=== PATIENT | female | born 1960 | race Caucasian/White ===

== ENCOUNTER 2017-09-14 09:13 | Day surgery (SDC) | payer OTHER ==
[2017-09-14] MEDS ORDERED: MIDAZOLAM 1 MG/ML 2 ML INJ ×2 (12:14→12:15)
[2017-09-14] MEDS ORDERED: FENTAnyl 50 MCG/ML VIAL (12:15)
== END 2017-09-14 14:12 | disposition home or self-care (01) ==
LOC: GIL 09:13
DX: K92.1 Melena (principal); K63.5 Polyp of colon; K64.8 Other hemorrhoids; I10 Essential (primary) hypertension
CPT/HCPCS: 45380; 88305

== ENCOUNTER 2017-11-12 09:30 | Inpatient (IN) | payer OTHER ==
[~2017-11-12 09:30] MED LIST: GLYCOPYRROLATE 0.4 MG INJ; NEOSTIGMINE 3 MG/3 ML SYRINGE
[2017-11-12] MEDS: metroNIDAZOLE 500 MG/NS (PMX) 100 ML IVPB (10:00)
[2017-11-12] MEDS ORDERED: SOD CHLORIDE 0.9% 1,000 ML IV (10:00)
[2017-11-12] MEDS: AMPICILLIN/SULB 3 GM/NS (PMX) 100 ML IVPB ×3 (10:00→22:22)
[2017-11-12] MEDS ORDERED: morphine SULFATE/PF (10 MG/10 ML) INJ (11:53)
[2017-11-12] MEDS ORDERED: MIDAZOLAM 1 MG/ML 2 ML INJ (11:53)
[2017-11-12] MEDS ORDERED: PHENYLephrine (100 MCG/ML) 5ML SYG ×2 (12:25→13:10)
[2017-11-12] MEDS ORDERED: METHYLENE BLUE 1% 10 ML INJ (12:57)
[2017-11-12] MEDS ORDERED: PROPOFOL 20 ML (14:33)
[2017-11-12] MEDS ORDERED: LIDOCAINE 2% (SDV) 5 ML INJ (14:33)
[2017-11-12] MEDS ORDERED: CEFAZOLIN 1 GM INJ (14:38)
[2017-11-12] MEDS ORDERED: metroNIDAZOLE 500 MG/NS (PMX) 100 ML IVPB (14:38)
[2017-11-12] MEDS: SOD CHLORIDE 0.9% 1,000 ML IV (14:39)
[2017-11-12] MEDS: BUPIVACAINE 0.25% (MPF) 30 ML INJ (14:55)
[2017-11-12] MEDS ORDERED: morphine 2 MG INJ IV (15:00)
[2017-11-12] MEDS ORDERED: NALOXONE (0.4 MG/ML) INJ IV (15:00)
[2017-11-12] MEDS ORDERED: MEPERIDINE 25 MG INJ IV (15:00)
[2017-11-12] MEDS ORDERED: DIPHENHYDRAMINE 50 MG INJ IV (15:00)
[2017-11-12] MEDS ORDERED: ONDANSETRON 4 MG INJ IV (15:00)
[2017-11-12] MEDS ORDERED: FENTAnyl 50 MCG/ML VIAL IV (15:00)
[2017-11-12] MEDS ORDERED: HYDROmorphONE (0.2 MG/ML) 10ML SYG IV (15:00)
[2017-11-12 15:13] LABS: ADD MAN DIFF? NO
[2017-11-12 15:19] LABS: BASOPHILS % 0.2 % (0.0-2.0); EOSINOPHILS # 0.1 10^3/ul (0.0-0.5); EOSINOPHILS % 0.5 % (0.0-7.0); HEMATOCRIT 38.3 % (37.0-47.0); HEMOGLOBIN 12.9 g/dl (12.0-16.0); LYMPHOCYTES % 15.6 % (15.0-51.0); MEAN CORPUSCULAR HEMOGLOBIN 30.4 pg (29.0-33.0); MEAN CORPUSCULAR HGB CONC 33.7 g/dl (32.0-37.0); MEAN CORPUSCULAR VOLUME 90.1 fl (82.0-101.0); MEAN PLATELET VOLUME 9.2 fl (7.4-10.4); MONOCYTE # 0.5 10^3/ul (0.3-0.9); MONOCYTES % 4.1 % (0.0-11.0); NEUTROPHIL # 10.1 10^3/ul (1.6-7.5); NEUTROPHILS % 79.1 % (39.0-77.0); PLATELET COUNT 266 10^3/UL (140-415); RED BLOOD COUNT 4.25 10^6/ul (4.20-5.40); RED CELL DISTRIBUTION WIDTH 11.8 % (11.5-14.5)
[2017-11-12 15:19] LABS: WHITE BLOOD COUNT 12.7 10^3/ul (4.8-10.8)
[2017-11-12 15:37] LABS: ALANINE AMINOTRANSFERASE 42 IU/L (13-69); ALBUMIN 3.4 g/dl (3.3-4.9); ALBUMIN/GLOBULIN RATIO 1.06; ALKALINE PHOSPHATASE 74 IU/L (42-121); ANION GAP 14 (8-16); ASPARTATE AMINO TRANSFERASE 33 IU/L (15-46); BILIRUBIN,INDIRECT 0.4 mg/dl (0-1.1); BILIRUBIN,TOTAL 0.4 mg/dl (0.2-1.3); CARBON DIOXIDE 26 mmol/L (21-31); CHLORIDE 108 mmol/L (97-110); GLUCOSE 134 mg/dl (70-220); TOTAL PROTEIN 6.6 g/dl (6.1-8.1)
[2017-11-12 15:56] LABS: BLOOD UREA NITROGEN 9 mg/dl (7-20); CALCIUM 9.1 mg/dl (8.4-10.2); CREATININE 0.61 mg/dl (0.44-1.00); SODIUM 144 mmol/L (135-144)
[2017-11-12] MEDS: HYDROmorphONE (0.2 MG/ML) 10ML SYG IV (16:01)
[2017-11-12] MEDS: METOCLOPRAMIDE 10 MG INJ IV (16:01)
[2017-11-12] MEDS ORDERED: hydrALAzine 20 MG INJ IV (16:30)
[2017-11-13] MEDS: SOD CHLORIDE 0.9% 1,000 ML IV ×5 (00:39→20:39)
[2017-11-13] MEDS: AMPICILLIN/SULB 3 GM/NS (PMX) 100 ML IVPB ×2 (04:29→08:17)
[2017-11-13 07:17] LABS: ADD MAN DIFF? NO
[2017-11-13 07:23] LABS: BASOPHILS % 0.3 % (0.0-2.0); EOSINOPHILS % 0.3 % (0.0-7.0); HEMATOCRIT 36.2 % (37.0-47.0); LYMPHOCYTES # 1.4 10^3/ul (0.8-2.9); LYMPHOCYTES % 11.7 % (15.0-51.0); MEAN CORPUSCULAR HEMOGLOBIN 30.5 pg (29.0-33.0); MEAN CORPUSCULAR HGB CONC 33.1 g/dl (32.0-37.0); MEAN CORPUSCULAR VOLUME 91.9 fl (82.0-101.0); MEAN PLATELET VOLUME 9.5 fl (7.4-10.4); MONOCYTE # 0.8 10^3/ul (0.3-0.9); MONOCYTES % 6.9 % (0.0-11.0); NEUTROPHIL # 9.4 10^3/ul (1.6-7.5); NEUTROPHILS % 80.4 % (39.0-77.0); PLATELET COUNT 247 10^3/UL (140-415); RED BLOOD COUNT 3.94 10^6/ul (4.20-5.40)
[2017-11-13 07:23] LABS: WHITE BLOOD COUNT 11.7 10^3/ul (4.8-10.8)
[2017-11-13 07:46] LABS: ALANINE AMINOTRANSFERASE 37 IU/L (13-69); ALBUMIN 3.3 g/dl (3.3-4.9); ALKALINE PHOSPHATASE 62 IU/L (42-121); ANION GAP 11 (8-16); ASPARTATE AMINO TRANSFERASE 25 IU/L (15-46); BILIRUBIN,INDIRECT 0.8 mg/dl (0-1.1); BILIRUBIN,TOTAL 0.8 mg/dl (0.2-1.3); BLOOD UREA NITROGEN 10 mg/dl (7-20); CALCIUM 8.9 mg/dl (8.4-10.2); CARBON DIOXIDE 30 mmol/L (21-31); CHLORIDE 108 mmol/L (97-110); CREATININE 0.69 mg/dl (0.44-1.00); GLUCOSE 121 mg/dl (70-220); POTASSIUM 4.3 mmol/L (3.5-5.1); SODIUM 145 mmol/L (135-144); TOTAL PROTEIN 6.3 g/dl (6.1-8.1)
[2017-11-13] MEDS: morphine 2 MG INJ IV (12:41)
[2017-11-13] MEDS: HYDROCODONE/APAP (5/325) TAB PO (17:39)
[2017-11-13] MEDS: PIPER-TAZO 3.375 GM IV (PMX) 100 ML IVPB (20:23)
[2017-11-13] MEDS: ACETAMINOPHEN 325 MG TAB PO (20:24)
[2017-11-14] MEDS: PIPER-TAZO 3.375 GM IV (PMX) 100 ML IVPB ×5 (01:32→23:30)
[2017-11-14] MEDS: SOD CHLORIDE 0.9% 1,000 ML IV ×3 (01:35→14:26)
[2017-11-14] MEDS: HYDROCODONE/APAP (5/325) TAB PO ×4 (01:36→21:52)
[2017-11-14 07:11] LABS: ADD MAN DIFF? NO
[2017-11-14 07:14] LABS: BASOPHILS % 0.2 % (0.0-2.0); EOSINOPHILS # 0.1 10^3/ul (0.0-0.5); EOSINOPHILS % 0.6 % (0.0-7.0); HEMOGLOBIN 11.9 g/dl (12.0-16.0); LYMPHOCYTES # 1.6 10^3/ul (0.8-2.9); LYMPHOCYTES % 12.7 % (15.0-51.0); MEAN CORPUSCULAR HEMOGLOBIN 30.5 pg (29.0-33.0); MEAN CORPUSCULAR HGB CONC 33.1 g/dl (32.0-37.0); MEAN CORPUSCULAR VOLUME 92.3 fl (82.0-101.0); MEAN PLATELET VOLUME 9.3 fl (7.4-10.4); MONOCYTE # 0.8 10^3/ul (0.3-0.9); MONOCYTES % 6.4 % (0.0-11.0); NEUTROPHIL # 9.9 10^3/ul (1.6-7.5); NEUTROPHILS % 79.6 % (39.0-77.0); PLATELET COUNT 228 10^3/UL (140-415); RED CELL DISTRIBUTION WIDTH 11.9 % (11.5-14.5)
[2017-11-14 07:14] LABS: WHITE BLOOD COUNT 12.4 10^3/ul (4.8-10.8)
[2017-11-14 07:43] LABS: ANION GAP 12 (8-16); BLOOD UREA NITROGEN 7 mg/dl (7-20); CALCIUM 8.9 mg/dl (8.4-10.2); CARBON DIOXIDE 28 mmol/L (21-31); CHLORIDE 108 mmol/L (97-110); CREATININE 0.62 mg/dl (0.44-1.00); GLUCOSE 104 mg/dl (70-220); POTASSIUM 3.7 mmol/L (3.5-5.1); SODIUM 144 mmol/L (135-144)
[2017-11-14] MEDS: morphine 2 MG INJ IV (12:05)
[2017-11-14] MEDS ORDERED: morphine LIQ (10 MG/5 ML) CUP PO (15:00)
[2017-11-14] MEDS ORDERED: ONDANSETRON 4 MG INJ IV (15:30)
[2017-11-15] MEDS: HYDROCODONE/APAP (5/325) TAB PO (02:32)
[2017-11-15] MEDS: SOD CHLORIDE 0.9% 1,000 ML IV ×2 (02:39→04:00)
[2017-11-15] MEDS: morphine LIQ (10 MG/5 ML) CUP PO ×2 (04:29→19:44)
[2017-11-15] MEDS: PIPER-TAZO 3.375 GM IV (PMX) 100 ML IVPB ×3 (05:17→18:34)
[2017-11-15 06:27] LABS: ADD MAN DIFF? NO
[2017-11-15 06:40] LABS: WHITE BLOOD COUNT 11.5 10^3/ul (4.8-10.8)
[2017-11-15 06:40] LABS: BASOPHILS % 0.3 % (0.0-2.0); EOSINOPHILS # 0.2 10^3/ul (0.0-0.5); EOSINOPHILS % 1.7 % (0.0-7.0); HEMATOCRIT 35.9 % (37.0-47.0); HEMOGLOBIN 12.1 g/dl (12.0-16.0); LYMPHOCYTES # 1.5 10^3/ul (0.8-2.9); LYMPHOCYTES % 13.4 % (15.0-51.0); MEAN CORPUSCULAR HEMOGLOBIN 30.5 pg (29.0-33.0); MEAN CORPUSCULAR HGB CONC 33.7 g/dl (32.0-37.0); MEAN CORPUSCULAR VOLUME 90.4 fl (82.0-101.0); MEAN PLATELET VOLUME 9.3 fl (7.4-10.4); MONOCYTE # 0.6 10^3/ul (0.3-0.9); NEUTROPHIL # 9.1 10^3/ul (1.6-7.5); NEUTROPHILS % 78.9 % (39.0-77.0); PLATELET COUNT 275 10^3/UL (140-415); RED BLOOD COUNT 3.97 10^6/ul (4.20-5.40); RED CELL DISTRIBUTION WIDTH 11.5 % (11.5-14.5)
[2017-11-15 07:04] LABS: ANION GAP 9 (8-16); BLOOD UREA NITROGEN 7 mg/dl (7-20); CALCIUM 8.4 mg/dl (8.4-10.2); CARBON DIOXIDE 27 mmol/L (21-31); CHLORIDE 107 mmol/L (97-110); CREATININE 0.59 mg/dl (0.44-1.00); GLUCOSE 117 mg/dl (70-220); POTASSIUM 3.3 mmol/L (3.5-5.1); SODIUM 140 mmol/L (135-144)
[2017-11-15] MEDS: SOD CHLORIDE 0.9% 500 ML IV ×2 (12:00→17:00)
[2017-11-15] MEDS: POTASSIUM CHLORIDE (SR) 20 MEQ TAB PO (15:41)
[2017-11-16] MEDS: PIPER-TAZO 3.375 GM IV (PMX) 100 ML IVPB ×3 (00:20→12:32)
[2017-11-16] MEDS: SOD CHLORIDE 0.9% 500 ML IV ×7 (00:20→23:00)
[2017-11-17] MEDS: SOD CHLORIDE 0.9% 500 ML IV ×4 (02:00→14:00)
[2017-11-17 06:24] LABS: ADD MAN DIFF? NO
[2017-11-17 06:31] LABS: WHITE BLOOD COUNT 7.7 10^3/ul (4.8-10.8)
[2017-11-17 06:31] LABS: BASOPHILS % 0.4 % (0.0-2.0); EOSINOPHILS # 0.3 10^3/ul (0.0-0.5); EOSINOPHILS % 3.5 % (0.0-7.0); HEMATOCRIT 34.1 % (37.0-47.0); HEMOGLOBIN 11.7 g/dl (12.0-16.0); LYMPHOCYTES # 1.7 10^3/ul (0.8-2.9); LYMPHOCYTES % 22.3 % (15.0-51.0); MEAN CORPUSCULAR HEMOGLOBIN 30.5 pg (29.0-33.0); MEAN CORPUSCULAR HGB CONC 34.3 g/dl (32.0-37.0); MEAN PLATELET VOLUME 9.1 fl (7.4-10.4); MONOCYTE # 0.5 10^3/ul (0.3-0.9); MONOCYTES % 6.1 % (0.0-11.0); NEUTROPHIL # 5.2 10^3/ul (1.6-7.5); NEUTROPHILS % 66.7 % (39.0-77.0); PLATELET COUNT 315 10^3/UL (140-415); RED BLOOD COUNT 3.83 10^6/ul (4.20-5.40); RED CELL DISTRIBUTION WIDTH 11.6 % (11.5-14.5)
[2017-11-17 06:54] LABS: ANION GAP 11 (8-16); BLOOD UREA NITROGEN 4 mg/dl (7-20); CALCIUM 8.9 mg/dl (8.4-10.2); CARBON DIOXIDE 29 mmol/L (21-31); CHLORIDE 109 mmol/L (97-110); CREATININE 0.53 mg/dl (0.44-1.00); GLUCOSE 92 mg/dl (70-220); POTASSIUM 3.2 mmol/L (3.5-5.1); SODIUM 146 mmol/L (135-144)
== END 2017-11-17 16:00 | disposition home or self-care (01) | DRG 331 ==
LOC: REC 09:30 → MS2 18:04
PROC: 0DTF4ZZ Resection of Right Large Intestine, Percutaneous Endoscopic Approach (ICD-10-PCS; principal; 2017-11-12 11:59)
DX: C18.2 Malignant neoplasm of ascending colon (principal); E66.9 Obesity, unspecified; I10 Essential (primary) hypertension; E78.5 Hyperlipidemia, unspecified; D12.2 Benign neoplasm of ascending colon; R33.9 Retention of urine, unspecified; Z68.33 Body mass index [BMI] 33.0-33.9, adult
CPT/HCPCS: 80048; 80053; 85025; 88309

== ENCOUNTER 2017-11-22 14:49 | Outpatient (CLI) | payer OTHER | END 2017-11-22 15:46 | disposition home or self-care (01) | LOC: DCC 14:49 | DX: I10 Essential (primary) hypertension (principal); E78.5 Hyperlipidemia, unspecified; E66.9 Obesity, unspecified; Z85.038 Personal history of other malignant neoplasm of large intestine | CPT/HCPCS: G0463 ==